=== PATIENT | male | born 1985 | race Caucasian/White ===

== ENCOUNTER 2019-04-02 13:01 | Emergency (ER) | payer OTHER ==
--- NOTE | 2019-04-02 13:13 | PDOC ---
Rapid Medical Evaluation Time Seen by Provider: 04/02/19 13:12 Medical Evaluation: Allergies Allergy/AdvReac Type Severity Reaction Status Date / Time No Known Allergies Allergy Verified 04/02/19 13:11 04/02/19 13:12 I have performed a brief in-person evaluation of this patient. The patient presents with a chief complaint of: anxiety- tapering off Xanax and starting Celexa Pertinent physical exam findings: VSS. AF. No focal deficits. I have ordered the following: nothing The patient will proceed to the ED for further evaluation. Discharge Disposition - Diagnosis Anxiety - Referrals - Patient Instructions - Post Discharge Activity
[2019-04-02 13:15] VITALS: TEMP 98.5; BMI 17.8
--- NOTE | 2019-04-02 13:27 | PDOC ---
*Physical Exam - Vital Signs Last Vital Signs Temp Pulse Resp BP Pulse Ox 98.5 F 89 18 127/74 97 04/02/19 13:12 04/02/19 13:12 04/02/19 13:12 04/02/19 13:12 04/02/19 13:12 Medical Decision Making - Medical Decision Making 04/02/19 14:13 Patient seen and evaluated w/Dr. Perea Patient is 33 year old male with no significant PMH who presents to our ED c/o nausea, palpitations, loss of appetite. Patient notes he started Xanax three weeks previous (0.5 mg QD) and because he felt was becoming dependent on the medication waking up feel anxious until he took the medication. Patient saw his PMD, Dr. Kelly, last week and started a taper to 0.25 mg QD and was started on Citaprolam. Patient came to the ED today because he felt continued to feel nauseous and have palpitations. Reports a 15 pound weight loss over the last month 2/2 to decreased appetite. VS unremarkable Patient outside of window for active benzo withdrawal and Tx with long acting benzo; Attending counseled patient on supportive care and d/c home. *DC/Admit/Observation/Transfer Diagnosis at time of Disposition: Benzodiazepine withdrawal without complication, Medication side effect - Discharge Dispostion Disposition: HOME Condition at time of disposition: Stable - Referrals Referrals: Alton Cohn MD [Primary Care Provider] - Alton Kelly MD [Staff Physician] - - Patient Instructions Printed Discharge Instructions: DI for Anxiety -- Adult, DI for Drug or Alcohol Withdrawal, Alprazolam, Citalopram Additional Instructions: You were seen and assessed in the Emergency Department. We want you to be reassured that we did not find anything that needed to be addressed emergently on our assessment but we highly recommend follow up evaluation. Please follow up with Dr. Kelly this week regarding your symptoms and visit to the ED today. Please return to the Emergency Department if you experience any of the following : - worsening of your symptoms - thoughts of suicide - seizures, fainting, loss of consciousness, change in behavior, and/or change in mentation - severe headache - chest pain, palpitations, shortness of breath and/or difficulty breathing - severe abdominal pain, bloody stool, and/or bloody diarrhea - any signs or symptoms that concern you - Post Discharge Activity Forms/Work/School Notes: Back to Work
--- NOTE | 2019-04-02 13:57 | PDOC ---
History of Present Illness - General History Source: Patient Exam Limitations: No Limitations - History of Present Illness Initial Comments: 04/02/19 13:52 33 yo M pmh anxiety presents with nausea, decreased appetite, and slight tremors of the arms. Pt started xanax 0.5mg 3 weeks ago and was tapered down to 0.25mg on 03/28/19, was given benadryl qd for withdrawal. Endorses 15-20 lbs weight loss over a 3 weeks, mild generalized weakness and 2 weeks of depressed mood. Denies plans or thoughts of suicide. Pt denies headache, lightheadedness, dizziness, F/C, vomiting, diarrhea, dysuria , chest pain, palpitations, and/or SOB. PMH: as above, herbster Meds: Xanax 0.25mg, Citalopram, Benadryl NKDA PCP: Dr. Kelly <Abner Perea - Last Filed: 04/02/19 14:46> <Fanny Mccoy - Last Filed: 04/02/19 14:56> - General Stated Complaint: MEDICATION WITHDRAWL Time Seen by Provider: 04/02/19 13:12 Past History - Past Medical History COPD: No GI Disorders: Yes (ACID REFLUX) Psychiatric Problems: Yes (SEVERE DEPRESSION) Other medical history: GILBERT SYNDROME - Immunization History Immunization Up to Date: Yes - Suicide/Smoking/Psychosocial Hx Smoking History: Never smoked Hx Alcohol Use: No Drug/Substance Use Hx: No Substance Use Type: Alcohol Hx Substance Use Treatment: No <Abner Perea - Last Filed: 04/02/19 14:46> <Fanny Mccoy - Last Filed: 04/02/19 14:56> - Past Medical History Allergies/Adverse Reactions: Allergies Allergy/AdvReac Type Severity Reaction Status Date / Time No Known Allergies Allergy Verified 04/02/19 13:11 Home Medications: Ambulatory Orders Alprazolam 0.25 mg PO DAILY 04/02/19 Citalopram Hydrobromide [Celexa -] 10 mg PO DAILY 04/02/19 Diphenhydramine HCl [Benadryl -] 25 mg PO PRN PRN 04/02/19 Review of Systems - Review of Systems Able to Perform ROS?: Yes Is the patient limited Hungarian proficient: No Constitutional: No: Chills, Fever HEENTM: No: Symptoms Reported, See HPI, Eye Pain, Blurred Vision, Tearing, Recent change in vision, Double Vision, Cataracts, Ear Pain, Ocular Prothesis, Ear Discharge, Nose Pain, Nose Congestion, Tinnitus, Nose Bleeding, Hearing Loss , Throat Pain, Throat Swelling, Mouth Pain, Dental Problems, Difficulty Swallowing, Mouth Swelling, Other Respiratory: No: Symptoms reported, See HPI, Cough, Orthopnea, Shortness of Breath, SOB with Exertion, SOB at Rest, Stridor, Wheezing, Productive cough, Hemoptysis, Other Cardiac (ROS): No: Symptoms Reported, See HPI, Chest Pain, Edema, Irregular Heart Rate, Lightheadedness, Palpitations, Syncope, Chest Tightness, Other ABD/GI: Yes: Nausea, Poor Appetite. No: Constipated, Diarrhea, Vomiting : No: Dysuria <EliazarAbner - Last Filed: 04/02/19 14:46> *Physical Exam - Vital Signs Last Vital Signs Temp Pulse Resp BP Pulse Ox 98.5 F 89 18 127/74 97 04/02/19 13:12 04/02/19 13:12 04/02/19 13:12 04/02/19 13:12 04/02/19 13:12 - Physical Exam Comments: 04/02/19 14:10 GEN: Resting comfortable in bed, NAD, nervous/anxious affect. Slightly diaphoretic/clammy skin. HEENT: NC/AT, EOMI, PERRLA. (+) Horizontal nystagmus. CN II-XII intact. NEURO: AAO x3. FROM UE and LE b/l, all extremities moving well. Sensation grossly intact. Ambulates well. CV: S1/S2, RRR, no m/r/g LUNG: CTAB, no wheezes, crackles, rales, rhonchi. GI: soft, ndnt, +BS. EXTREMITIES: 2+ distal pulses. No LE edema. No obvious deformities of all extremities. BACK: no obvious deformities. <Abner Perea - Last Filed: 04/02/19 14:46> - Vital Signs Last Vital Signs Temp Pulse Resp BP Pulse Ox 98.5 F 60 18 119/68 97 04/02/19 13:12 04/02/19 14:31 04/02/19 14:31 04/02/19 14:31 04/02/19 14:31 <Fanny Mccoy - Last Filed: 04/02/19 14:56> Medical Decision Making - Medical Decision Making 04/02/19 14:22 33yo M presenting with nausea, loss of appetite, and tremor that patient associates with xanax withdrawal. He was prescribed 0.5mg xanax 3 weeks ago under care of Dr. Kelly, tapered down to 0.25mg on 03/28/19, and scheduled to taper off 04/04/19. Started citalopram on 03/28/19, thus efficacy of medication not yet reached. Endorses increased depressed mood without thoughts or plans of suicide. Patient is outside the window of BZD withdrawal seizures. Tremor, loss of appetite, and nausea - patient likely has mild bzd withdrawal who is not at risk of withdrawal seizures or syncope - will provide reassurance Dispo: home with PCP follow up. <EliazarAbner - Last Filed: 04/02/19 14:46> *DC/Admit/Observation/Transfer <Abner Perea - Last Filed: 04/02/19 14:46> - Discharge Dispostion Decision to Admit order: No <Fanny Mccoy - Last Filed: 04/02/19 14:56> Diagnosis at time of Disposition: Benzodiazepine withdrawal without complication, Medication side effect - Discharge Dispostion Disposition: HOME Condition at time of disposition: Stable - Referrals Referrals: Alton Cohn MD [Primary Care Provider] - Alton Kelly MD [Staff Physician] - - Patient Instructions Printed Discharge Instructions: DI for Anxiety -- Adult, DI for Drug or Alcohol Withdrawal, Alprazolam, Citalopram Additional Instructions: You were seen and assessed in the Emergency Department. We want you to be reassured that we did not find anything that needed to be addressed emergently on our assessment but we highly recommend follow up evaluation. Please follow up with Dr. Kelly this week regarding your symptoms and visit to the ED today. Please return to the Emergency Department if you experience any of the following : - worsening of your symptoms - thoughts of suicide - seizures, fainting, loss of consciousness, change in behavior, and/or change in mentation - severe headache - chest pain, palpitations, shortness of breath and/or difficulty breathing - severe abdominal pain, bloody stool, and/or bloody diarrhea - any signs or symptoms that concern you
[2019-04-02 14:32] VITALS: BP 119/68; PULSE 60
--- NOTE | 2019-04-02 14:54 | PDOC ---
Documentation entered by Angelina Tubbs SCRIBE, acting as scribe for Fanny Mccoy MD. Fanny Mccoy MD: This documentation has been prepared by the scribe, Angelina Tubbs SCRIBE, under my direction and personally reviewed by me in its entirety. I confirm that the documentation accurately reflects all work, treatment, procedures, and medical decision making performed by me. Attending Attestation - Resident Resident Name: PereaAbner - ED Attending Attestation I have performed the following: I have examined & evaluated the patient, The case was reviewed & discussed with the resident, I agree w/resident's findings & plan, Exceptions are as noted - HPI HPI: 04/02/19 14:28 The patient is a 33-year-old male, with a past medical history of anxiety, who presents to the ED with nausea, decreased PO intake, and B/L arm tremors. The patient states that he was started on Xanax 3 weeks ago and his medication is being tapered down to 0.25 mg since 03/28/19. He reports recent weight loss of 15-20 lbs over the last 3 weeks. He also endorses generalized weakness and a depressed mood for the past 2 weeks. He denies any suicidal ideations. The patient denies any fevers, chills, nausea, vomiting, diarrhea, or abdominal pain. Denies any chest pain, palpitations, or shortness of breath. Denies any headache, dizziness, or lightheadedness. Allergies: NKA PCP: Dr. Kelly - Physicial Exam PE: 04/02/19 14:29 NAD, well appearing, awake and alert, speech clear, EOMI, PERRL, MMM, nl conjunctiva, anicteric; neck supple. lungs clear, RRR, no murmur, abdomen soft nontender. Back nontender. MCCARTNEY x4, no focal neuro deficits. No peripheral edema. normal color for ethnicity, WWP. no tremors. 04/02/19 14:59 - Medical Decision Making 04/02/19 14:56 Vital Signs Temp Pulse Resp BP Pulse Ox 98.5 F 60 18 119/68 97 04/02/19 13:12 04/02/19 14:31 04/02/19 14:31 04/02/19 14:31 04/02/19 14:31 History of physical examination as documented. DDX benzo w/d, anxiety, tremors, medication side effect There is no evidence of intoxication. Vital signs reviewed and are within normal limits. No tachycardia, normotensive, no respiratory distress or hypoxia. ' Patient does not endorse additional symptoms such as chest pain, shortness of breath, headache, vomiting, s/s dehydration, syncope or neurologic changes/AMS. His symptom constellation of anxiety/tremors and nausea and weight loss likely secondary to his tapering off of anxiety and now he is experiencing withdrawal syndrome. Supportive management is indicated. He is currently getting titrated off on appropriate medications including low-dose Xanax, citalopram which she has only taken for 1 week. Expected course of medications to start working is approximately 2-6 weeks and expected management is provided to the patient. 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 Pt to be discharged in stable condition. Patient and family made aware of clinical impression, treatment recommendations and disposition plan, return precautions discussed (including but not limited to new or persistent/worsening symptoms, pain, fevers, or signs of infection, chest pain, respiratory distress , inability to tolerate oral intake, dehydration, syncope, or neurologic changes ). Follow up with PMD Dr Kelly as recommended, follow up information provided, take medications as instructed for duration of time. continue with supportive care, avoid triggers and precipitants. All questions answered to patient's satisfaction and expressed understanding and comfort with this. At the time of discharge, the patient is alert, clinically improved, tolerating po and verbalizes understanding of instructions, satisfied with the care received and felt comfortable with the plan. Patient does not suffer from an acute life- threatening medical condition at this time and is safe for outpatient follow- up. 04/02/19 14:59 04/02/19 14:59
== END 2019-04-02 15:03 | disposition home or self-care (01) ==
LOC: JER 13:01
DX: F11.23 Opioid dependence with withdrawal (principal)
CPT/HCPCS: 99282-25

== ENCOUNTER 2022-01-19 04:12 | Emergency (ER) | payer OTHER ==
[2022-01-19] MEDS ORDERED: ACETAMINOPHEN 1000 MG/100 ML BAG IVPB ONE (04:34)
[2022-01-19] MEDS ORDERED: SODIUM CHLORIDE 0.9% 500 ML INFUS.BAG IV ONE (04:34)
[2022-01-19] MEDS ORDERED: ACETAMINOPHEN INJECTION 100 ML IVPB ONE (04:34)
[2022-01-19 05:10] VITALS: TEMP 98.4; BMI 20.4
[2022-01-19 05:46] LABS: BASO % 0.2 % (0-2.0); EOS % 1.5 % (0-4.5); HEMATOCRIT 41.2 % (35.4-49); HEMOGLOBIN 13.2 GM/dL (11.7-16.9); LYMPH % 10.5 % (8-40); MCH 25.3 pg (25.7-33.7); MEAN CELL VOLUME 78.9 fl (80-96); MEAN PLT VOLUME 9.2 fl (7.5-11.1); NEUT % 78.8 % (42.8-82.8); PLATELET COUNT 193 10^3/uL (134-434); RBC 5.22 M/mm3 (4.00-5.60); RDW 17.1 % (11.9-15.9); WHITE BLOOD COUNT 7.1 K/mm3 (4.0-10.0)
[2022-01-19 06:10] LABS: ALBUMIN 3.6 g/dl (3.4-5.0); BLOOD UREA NITROGEN 11.3 mg/dL (7-18); CALCIUM 8.5 mg/dL (8.5-10.1); MAGNESIUM 2.2 mg/dL (1.8-2.4)
[2022-01-19 06:15] LABS: BILIRUBIN,TOTAL 1.4 mg/dL (0.2-1); TOT PROT 6.8 g/dl (6.4-8.2)
[2022-01-19 07:11] VITALS: BP 102/59; PULSE 61
[2022-01-19 08:38] LABS: EPI CELLS 2 /uL (0-25.1); HYALINE CASTS 0 /uL (0-3.1); URINE APPEARANCE CLEAR; URINE BACTERIA 2 /uL (0-1359); URINE BILIRUBIN NEGATIVE (NEGATIVE); URINE COLOR YELLOW; URINE GLUCOSE (UA) NEGATIVE (NEGATIVE); URINE KETONE NEGATIVE (NEGATIVE); URINE LEUK ESTERASE NEGATIVE (NEGATIVE); URINE NITRITE NEGATIVE (NEGATIVE); URINE PROTEIN 1+ (NEGATIVE); URINE RBC 18 /uL (0-23.9); URINE UROBILINOGEN 0.2 mg/dL (0.2-1.0); URINE WBC 2 /uL (0-25.8)
== END 2022-01-19 09:04 | disposition home or self-care (01) ==
LOC: JER 04:12
PROC: 3E033GC Introduction of Other Therapeutic Substance into Peripheral Vein, Percutaneous Approach (ICD-10-PCS; principal; 2022-01-19)
DX: R10.31 Right lower quadrant pain (principal)
CPT/HCPCS: 36415; 74177-TC; 80053; 81003; 83690; 83735; 85025; 87086; 99285-25; Q9967

== ENCOUNTER 2023-03-15 16:09 | Emergency (ER) | payer BC, OTHER ==
[2023-03-15 16:24] VITALS: BP 126/78; PULSE 56; RESP 15; TEMP 98.3; BMI 20.5
[2023-03-15] MEDS ORDERED: AMOX TR/POT CLAV 875MG/125MG TABLETS (FP) PO ONE (16:41)
[2023-03-15] MEDS ORDERED: AMOX TR/POT CLAV 875MG/125MG TABLETS (FP) ONE (16:56)
== END 2023-03-15 17:02 | disposition home or self-care (01) ==
LOC: JERFT 16:09 → JER 16:09 → JERFT 17:02
DX: H66.002 Acute suppurative otitis media without spontaneous rupture of ear drum, left ear (principal); H92.02 Otalgia, left ear; R07.0 Pain in throat
CPT/HCPCS: 99283-25

== ENCOUNTER 2023-05-30 18:46 | Emergency (ER) | payer BC ==
[2023-05-30 18:58] VITALS: BP 143/79; PULSE 53; RESP 18; TEMP 98.1; BMI 20.5
== END 2023-05-30 22:04 | disposition home or self-care (01) ==
LOC: JER 18:46 → JERFT 18:46
DX: R21 Rash and other nonspecific skin eruption (principal)
CPT/HCPCS: 99282-25